=== PATIENT | male | born 1965 | race Caucasian/White ===

== ENCOUNTER 2025-03-31 08:51 | Outpatient (CLI) | payer OTHER ==
[2025-03-31 09:34] LABS: BASO % 0.7 % (0.1-1.2); EOS # 0.24 (0.04-0.54); EOS % 2.9 % (0.7-7.0); LYMPH # 1.28 (1.18-3.74); LYMPH % 15.4 % (19.3-53.1); MEAN PLATELET VOLUME 9.40 fl (9.4-12.4); MONO # 0.78 (0.24-0.82); MONO % 9.4 % (4.7-12.5); NEUT # 5.93 (1.56-6.13); NEUT % 71.2 % (34.0-71.1); RED CELL DISTRIBUTION WIDTH 14.2 % (11.6-14.4)
[2025-03-31 09:53] LABS: INR 1.18
[2025-03-31 10:08] LABS: URINE APPEARANCE Clear; URINE BILIRRUBIN Negative (NEGATIVE); URINE BLOOD Negative; URINE COLOR Yellow; URINE GLUCOSE Negative (NEGATIVE); URINE KETONE Negative (NEGATIVE); URINE LEUKOCYTE Negative; URINE NITRATE Negative; URINE PROTEIN Negative (NEGATIVE); URINE UROBILINOGEN 0.2 E.U./dl
[2025-03-31 10:10] LABS: URINE WBC 3.9 uL (0.0-23.2)
[2025-03-31 10:12] LABS: URINE BACTERIA 3.5 uL (0.0-1933); URINE CAST 0.00 uL (0.0-1.40); URINE EPITHELIAL CELLS 0.4 uL (0.0-38.8); URINE RBC 1.0 uL (0.0-20.8)
[2025-03-31 10:37] LABS: ALT/SGPT 21.0 U/L (12-78); AST/SGOT 20.0 U/L (15-37); BILIRUBIN TOTAL 0.72 mg/dL (0.3-1.2); BUN CREA RATIO 21.0 (7.0-25.0); CREATININE SERUM 0.76 mg/dL (0.70-1.30); GFR 105.34; GLOBULINA 3.1 G/DL (2.4-3.5); GLUCOSE FASTING 85.0 mg/dL (65-100); OSMOLALITY SERUM 284.0 MOSM/KG (275-295)
== END 2025-03-31 09:05 | disposition home or self-care (01) ==
LOC: LAB 08:51
DX: K40.30 Unilateral inguinal hernia, with obstruction, without gangrene, not specified as recurrent (principal); Z01.812 Encounter for preprocedural laboratory examination

== ENCOUNTER 2025-03-31 09:46 | Outpatient (CLI) | payer OTHER | END 2025-03-31 09:48 | disposition home or self-care (01) | LOC: SONOGRAMA 09:46 | PROVIDERS: ATTEND Surgery | DX: K40.30 Unilateral inguinal hernia, with obstruction, without gangrene, not specified as recurrent (principal) ==

== ENCOUNTER 2025-04-20 06:00 | Day surgery (SDC) | payer OTHER ==
[2025-04-09 10:06] VITALS: BP 121/70
[~2025-04-20] VITALS: Ht 177.8 cm; Wt 61.2 kg
[2025-04-20] MEDS ORDERED: BUPIVACAINE HCL/MPF 0.5% 30ML VIAL ONE (07:04)
[2025-04-20] MEDS ORDERED: LIDOCAINE HCL 1% 20 ML VIAL IJ ONE (07:05)
[2025-04-20] MEDS ORDERED: CEFAZOLIN SODIUM 1,000 MG VIAL ONE (07:06)
== END 2025-04-20 13:15 | disposition home or self-care (01) ==
LOC: CIR.AMB 06:00
PROVIDERS: ATTEND Surgery
DX: K40.30 Unilateral inguinal hernia, with obstruction, without gangrene, not specified as recurrent (principal)